=== PATIENT | female | born 1955 | race Caucasian/White ===

== ENCOUNTER → 2016-07-04 | Outpatient (CLI) | payer OTHER ==
[~2016-07-04] MED LIST: CALC1CHW71 PO; FOLI1TAB8 PO; MELO15TA4 PO; METH2.5T PO; MULT-506 PO; RMCI IV; TRAM-10 PO; ZOLP10TA PO
--- NOTE | 2016-07-04 11:10 | DIAGNOSTIC IMAGING REPORT ---
LEFT HAND MIN 3 VIEWS ROUTINE CLINICAL HISTORY: M06.9 Rheumatoid [id number] Long-term use of immunosuppres COMPARISON STUDY: None. FINDINGS: Severe cartilage space narrowing throughout the carpal bones with remodeling of the distal radius due to the [id number] articulation. The ulnar styloid is absent possibly due to erosion. There is mild soft tissue swelling at the wrist. The bones are diffusely osteopenic. No acute fractures identified. Ulnar angulation at the second through fifth MCP joints. There is associated superimposed osteoarthritis at the MCP joints. Mild osteoarthritis at the DIP and PIP joints of the left hand. Suspect small erosions at the ulnar styloid, lateral aspect of the hamate bone, and at the heads of the metacarpals. There is also severe osteoarthritis at the first carpometacarpal joint. IMPRESSION: 1. Marked ulnar angulation at the second through fifth MCP joints. There is superimposed osteoarthritis at the MCP joints. There may be small erosions at the head of the second through fifth metacarpals. There is also suggestion of soft tissue swelling and small erosions at the ulnar styloid and at the lateral aspect of the hamate bone. This would be consistent with the patient's history of rheumatoid arthritis. 2. 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 Electronically signed by: Dago Singh M.D. 07/04/2016 11:08 AM
--- NOTE | 2016-07-04 11:18 | DIAGNOSTIC IMAGING REPORT ---
RIGHT HAND MIN 3 VIEWS ROUTINE CLINICAL HISTORY: Rheumatoid arthritis. COMPARISON: None FINDINGS: Marked joint space narrowing is noted within the right wrist as well as multiple articulations of the right hand. There is subluxation with ulnar angulation of the second, third, fourth and fifth metacarpophalangeal joints. This is chronic. Several periarticular lucencies likely reflect erosions. No acute fracture is identified. No suspicious osseous lesion is identified. IMPRESSION: 1. Subluxation with ulnar angulation of the second through fifth metacarpophalangeal joints. The findings suggest rheumatoid arthritis. 2. Marked joint space narrowing within the right wrist which may also reflect rheumatoid arthritis. 3. Scattered suspected erosions. Electronically signed by: Arun Moreno M.D. 07/04/2016 11:16 AM
[2016-07-04 12:09] LABS: BASO % 0.6 %; BASO ABS # 0.03 K/uL (0-0.2); COMPLETE YES; EOS % 4.5 %; HEMATOCRIT 35.9 % (37-47); IG% 0.2 %; LYMPH ABS # 1.17 K/uL (1.2-3.4); MEAN CELL VOLUME 101.7 fL (80-100); MEAN CORPUSCULAR HEMOGLOBIN 35.1 pg (25-34); MEAN CORPUSCULAR HGB CONC 34.5 g/dl (32-36); MEAN PLATELET VOLUME 10.5 fL (7.4-10.4); MONO % 9.4 %; NEUT % 61.3 %; PLATELET COUNT 196 K/uL (130-400); RED BLOOD COUNT 3.53 M/uL (4.2-5.4); WHITE BLOOD COUNT 4.87 K/uL (4.8-10.8)
[2016-07-04 12:14] LABS: AST/SGOT 15 U/L (15-37); CREATININE 0.93 mg/dl (0.60-1.20)
[2016-07-04 12:17] LABS: ALKALINE PHOSPHATASE 80 U/L (45-117); ALT/SGPT 21 U/L (12-78); RHEUMATOID FACTOR < 10.0 U/mL (0-15)
== END | disposition home or self-care (01) ==
LOC: C.RAD1850 10:49
PROVIDERS: ATTEND Internal Medicine Rheumatology
DX: M06.9 Rheumatoid arthritis, unspecified (principal); Z79.1 Long term (current) use of non-steroidal anti-inflammatories (NSAID); Z79.899 Other long term (current) drug therapy; M19.032 Primary osteoarthritis, left wrist

== ENCOUNTER → 2016-09-05 | Outpatient (CLI) | payer OTHER ==
[~2016-09-05] MED LIST changes: +FOLI1TAB7 PO; -FOLI1TAB8 PO
[2016-09-05 11:54] LABS: BASO % 0.6 %; BASO ABS # 0.03 K/uL (0-0.2); COMPLETE YES; EOS % 2.8 %; HEMATOCRIT 36.9 % (37-47); IG% 0.2 %; LYMPH % 28.9 %; LYMPH ABS # 1.43 K/uL (1.2-3.4); MEAN CELL VOLUME 100.3 fL (80-100); MEAN CORPUSCULAR HEMOGLOBIN 35.1 pg (25-34); MEAN PLATELET VOLUME 10.6 fL (7.4-10.4); MONO % 8.5 %; PLATELET COUNT 226 K/uL (130-400); RED BLOOD COUNT 3.68 M/uL (4.2-5.4); WHITE BLOOD COUNT 4.94 K/uL (4.8-10.8)
[2016-09-05 12:04] LABS: CREATININE 0.86 mg/dl (0.60-1.20)
[2016-09-05 12:09] LABS: ALKALINE PHOSPHATASE 73 U/L (45-117); ALT/SGPT 18 U/L (12-78); AST/SGOT 17 U/L (15-37)
== END | disposition home or self-care (01) ==
LOC: C.LAB1850 10:04
PROVIDERS: ATTEND Internal Medicine Rheumatology
DX: M06.9 Rheumatoid arthritis, unspecified (principal); Z51.81 Encounter for therapeutic drug level monitoring; Z79.1 Long term (current) use of non-steroidal anti-inflammatories (NSAID); Z79.899 Other long term (current) drug therapy

== ENCOUNTER → 2016-10-23 | Outpatient (CLI) | payer OTHER ==
--- NOTE | 2016-10-24 15:07 | MAMMOGRAPHY REPORT ---
BILATERAL DIGITAL SCREENING MAMMOGRAM WITH CAD: 10/23/2016 CLINICAL HISTORY: Routine screening. Patient has no complaints. TECHNIQUE: Bilateral CC and MLO views were obtained. Current study was also evaluated with a Comput er Aided Detection (CAD) system. COMPARISON: Comparison is made to exams dated: 10/10/2015 mammogram, 08/24/2014 mammogram, 08/18/2013 mammogram, 07/21/2012 mammogram, 07/17/2011 mammogram, and 07/24/2010 mammogram - [facility]. BREAST COMPOSITION: There are scattered areas of fibroglandular density in both breasts. FINDINGS: There is stable asymmetry in the superior, posterior right breast on the MLO view. No collin picious mass, architectural distortion or cluster of new, suspicious microcalcifications is seen. IMPRESSION: ACR BI-RADS CATEGORY 1: NEGATIVE There is no mammographic evidence of malignancy. A 1 year screening mammogram is recommended. The p atient will receive written notification of the results. Approximately 10% of breast cancers are not detected with mammography. A negative mammographic repor t should not delay biopsy if a clinically suggestive mass is present. Livier Jimenez M.D. ay/:10/23/2016 22:05:11 Continuous Drier Helper: Melvi ESPINOZA(Namita)([place]), [facility] letter sent: Normal 1/2 BI-RADS Code: ACR BI-RADS Category 1: Negative
== END | disposition home or self-care (01) ==
LOC: C.MAMM 17:00
PROVIDERS: ATTEND Internal Medicine
DX: Z12.31 Encounter for screening mammogram for malignant neoplasm of breast (principal)

== ENCOUNTER → 2016-11-08 | Outpatient (CLI) | payer OTHER ==
[2016-11-08 16:57] LABS: BASO % 0.6 %; BASO ABS # 0.03 K/uL (0-0.2); COMPLETE YES; EOS % 3.2 %; HEMATOCRIT 37.9 % (37-47); IG% 0.2 %; LYMPH % 26.8 %; LYMPH ABS # 1.42 K/uL (1.2-3.4); MEAN CELL VOLUME 102.4 fL (80-100); MEAN CORPUSCULAR HEMOGLOBIN 35.1 pg (25-34); MEAN CORPUSCULAR HGB CONC 34.3 g/dl (32-36); MEAN PLATELET VOLUME 10.4 fL (7.4-10.4); NEUT % 59.2 %; PLATELET COUNT 217 K/uL (130-400)
[2016-11-08 19:20] LABS: ALT/SGPT 22 U/L (12-78); AST/SGOT 18 U/L (15-37); CREATININE 0.89 mg/dl (0.60-1.20)
[2016-11-08 19:22] LABS: ALKALINE PHOSPHATASE 92 U/L (45-117)
== END | disposition home or self-care (01) ==
LOC: C.LABBC 14:22
PROVIDERS: ATTEND Internal Medicine Rheumatology
DX: M06.9 Rheumatoid arthritis, unspecified (principal); Z79.899 Other long term (current) drug therapy; Z79.1 Long term (current) use of non-steroidal anti-inflammatories (NSAID)

== ENCOUNTER → 2017-01-09 | Outpatient (CLI) | payer OTHER | END | disposition home or self-care (01) | LOC: C.PAPS 14:39 | PROVIDERS: ATTEND Obstetrics & Gynecology | DX: Z12.4 Encounter for screening for malignant neoplasm of cervix (principal) ==

== ENCOUNTER → 2017-01-15 | Outpatient (CLI) | payer OTHER | END | disposition home or self-care (01) | LOC: C.PATHSPEC 16:48 | PROVIDERS: ATTEND Dermatology | DX: B08.1 Molluscum contagiosum (principal) ==

== ENCOUNTER → 2017-01-23 | Outpatient (CLI) | payer OTHER ==
[2017-01-23 10:37] LABS: BASO % 1.2 %; BASO ABS # 0.05 K/uL (0-0.2); COMPLETE YES; EOS % 6.7 %; HEMATOCRIT 36.3 % (37-47); IG% 0.2 %; LYMPH % 33.9 %; LYMPH ABS # 1.36 K/uL (1.2-3.4); MEAN CELL VOLUME 102.3 fL (80-100); MEAN CORPUSCULAR HEMOGLOBIN 34.4 pg (25-34); MEAN CORPUSCULAR HGB CONC 33.6 g/dl (32-36); MONO % 12.7 %; NEUT % 45.3 %; PLATELET COUNT 200 K/uL (130-400); RED BLOOD COUNT 3.55 M/uL (4.2-5.4); WHITE BLOOD COUNT 4.01 K/uL (4.8-10.8)
[2017-01-23 11:56] LABS: ALKALINE PHOSPHATASE 76 U/L (45-117); ALT/SGPT 18 U/L (12-78); AST/SGOT 16 U/L (15-37); BLOOD UREA NITROGEN 21 mg/dl (7-18); CALCIUM 8.6 mg/dl (8.5-10.1); CARBON DIOXIDE 26 mmol/L (21-32); CHLORIDE 111 mmol/L (98-107); CHOLESTEROL 165 mg/dl (0-200); CHOLESTEROL/HDL RATIO 2.1; CREATININE 0.88 mg/dl (0.60-1.20); GLUCOSE 85 mg/dl (70-99); HDL CHOLESTEROL 79 mg/dl; POTASSIUM 4.3 mmol/L (3.5-5.1); SODIUM 142 mmol/L (136-145)
[2017-01-23 12:07] LABS: LDL CHOLESTEROL CALCULATED 76 mg/dl; TRIGLYCERIDES 50 mg/dl (0-150); VERY LOW DENSITY LIPOPROT CALC 10 mg/dl
== END | disposition home or self-care (01) ==
LOC: C.LABBC 07:47
PROVIDERS: ATTEND Internal Medicine Rheumatology
DX: Z11.59 Encounter for screening for other viral diseases (principal); G47.00 Insomnia, unspecified; M06.9 Rheumatoid arthritis, unspecified; Z79.1 Long term (current) use of non-steroidal anti-inflammatories (NSAID); Z79.899 Other long term (current) drug therapy

== ENCOUNTER → 2017-02-20 | Outpatient (CLI) | payer OTHER | END | disposition home or self-care (01) | LOC: C.PATHSPEC 16:20 | PROVIDERS: ATTEND Dermatology | DX: B08.1 Molluscum contagiosum (principal) ==

== ENCOUNTER → 2017-04-15 | Outpatient (CLI) | payer OTHER ==
[2017-04-15 16:34] LABS: BASO % 1.5 %; BASO ABS # 0.07 K/uL (0-0.2); COMPLETE YES; EOS % 6.2 %; HEMATOCRIT 37.4 % (37-47); IG% 0.2 %; LYMPH % 41.7 %; LYMPH ABS # 1.89 K/uL (1.2-3.4); MEAN CELL VOLUME 102.5 fL (80-100); MEAN CORPUSCULAR HEMOGLOBIN 35.1 pg (25-34); MEAN CORPUSCULAR HGB CONC 34.2 g/dl (32-36); MEAN PLATELET VOLUME 10.2 fL (7.4-10.4); MONO % 11.7 %; NEUT % 38.7 %; PLATELET COUNT 215 K/uL (130-400); RED BLOOD COUNT 3.65 M/uL (4.2-5.4); WHITE BLOOD COUNT 4.53 K/uL (4.8-10.8)
[2017-04-15 16:52] LABS: ALT/SGPT 19 U/L (12-78); AST/SGOT 15 U/L (15-37); CREATININE 0.92 mg/dl (0.60-1.20)
== END ==
LOC: C.LAB1850 14:56
PROVIDERS: ATTEND Internal Medicine Rheumatology
DX: Z79.1 Long term (current) use of non-steroidal anti-inflammatories (NSAID) (principal); Z79.899 Other long term (current) drug therapy; M06.9 Rheumatoid arthritis, unspecified

== ENCOUNTER → 2017-04-23 | Outpatient (CLI) | payer OTHER ==
--- NOTE | 2017-04-23 14:13 | DIAGNOSTIC IMAGING REPORT ---
RIGHT KNEE 2 VIEWS HISTORY: M25.561 Right knee pain [id number] COMPARISON: 04/03/2011 FINDINGS: No acute fracture dislocation. Severe osteoarthritis at the patellofemoral joint with [id number] articulation, subchondral sclerosis, and marginal osteophytes. The bones are osteopenic. There are 2 orthopedic screws through the patella. The hardware appears intact. Small knee effusion. 1 of the screw tips extends beyond the cortex of the patella superiorly by approximately 1 cm. This has slightly progressed improves it measured 6 mm. Chondrocalcinosis. Mild to moderate osteoarthritis at the medial lateral compartments of the knee. Progressive sclerosis at the medial and lateral femoral condyles. IMPRESSION: 1. No acute fracture or dislocation within the right knee. 2. There are again noted 2 orthopedic screws within the patella. One of the screw tips extend beyond the cortex of the patella superiorly by approximately 1 cm. This is slightly progressed. 3. Severe osteoarthritis at the patellofemoral joint. 4. Contrast stenosis. 5. Progressive sclerosis at the medial and lateral femoral condyles. This could be due to long-standing degenerative change. However, avascular necrosis could also have a similar appearance but is considered less likely. Electronically signed by: Dago Singh M.D. 04/23/2017 2:12 PM Dictated Date/Time: 04/23/2017 2:06 PM
== END | disposition home or self-care (01) ==
LOC: C.RAD1850 13:50
PROVIDERS: ATTEND Internal Medicine Rheumatology
DX: M17.11 Unilateral primary osteoarthritis, right knee (principal); M89.8X6 Other specified disorders of bone, lower leg; Z98.890 Other specified postprocedural states

== ENCOUNTER → 2017-06-05 | Outpatient (CLI) | payer OTHER ==
[2017-06-05 10:42] LABS: BASO % 0.4 %; BASO ABS # 0.03 K/uL (0-0.2); COMPLETE YES; EOS % 1.9 %; HEMATOCRIT 38.2 % (37-47); IG% 0.2 %; LYMPH % 32.3 %; LYMPH ABS # 2.66 K/uL (1.2-3.4); MEAN CELL VOLUME 104.9 fL (80-100); MEAN CORPUSCULAR HEMOGLOBIN 35.4 pg (25-34); MEAN CORPUSCULAR HGB CONC 33.8 g/dl (32-36); MEAN PLATELET VOLUME 10.2 fL (7.4-10.4); MONO % 10.6 %; NEUT % 54.6 %; PLATELET COUNT 300 K/uL (130-400); RED BLOOD COUNT 3.64 M/uL (4.2-5.4); WHITE BLOOD COUNT 8.24 K/uL (4.8-10.8)
[2017-06-05 11:02] LABS: ALT/SGPT 19 U/L (12-78); AST/SGOT 16 U/L (15-37); CREATININE 0.87 mg/dl (0.60-1.20)
[2017-06-05 11:05] LABS: ALKALINE PHOSPHATASE 85 U/L (45-117)
== END | disposition home or self-care (01) ==
LOC: C.LABBC 07:45
PROVIDERS: ATTEND Internal Medicine Rheumatology
DX: M25.561 Pain in right knee (principal)

== ENCOUNTER → 2017-07-28 | Outpatient (CLI) | payer OTHER ==
[~2017-07-28] MED LIST changes: -FOLI1TAB7 PO; +FOLI1TAB8 PO
--- NOTE | 2017-07-28 16:13 | DIAGNOSTIC IMAGING REPORT ---
RIGHT HAND 3 VIEWS HISTORY: I73.00 Raynaud's disease New onset Raynaud's positive history of COMPARISON: Right hand 07/04/2016. FINDINGS: Marked joint space narrowing is noted within the right wrist as well as multiple articulations of the right hand. There is subluxation with ulnar angulation of the second, third, fourth and fifth metacarpophalangeal joints. This is chronic. Several periarticular lucencies likely reflect erosions. No acute fracture is identified. No suspicious osseous lesion is identified. The bones are osteopenic. IMPRESSION: 1. Overall, no significant change compared to the prior study. 2. Subluxation with ulnar angulation of the second through fifth metacarpophalangeal joints. The findings suggest rheumatoid arthritis. 3. Marked joint space narrowing within the right wrist which may also reflect rheumatoid arthritis. 4. Scattered suspected erosions. Electronically signed by: Dago Singh M.D. 07/28/2017 4:12 PM Dictated Date/Time: 07/28/2017 4:10 PM
--- NOTE | 2017-07-28 16:15 | DIAGNOSTIC IMAGING REPORT ---
LEFT HAND 3 VIEWS HISTORY: I73.00 Raynaud's disease New onset Raynaud's positive history of COMPARISON: Left hand 07/04/2016. FINDINGS: Severe cartilage space narrowing throughout the carpal bones with remodeling of the distal radius due to the [id number] articulation. The ulnar styloid is absent possibly due to erosion. There is mild soft tissue swelling at the wrist. The bones are diffusely osteopenic. No acute fractures identified. Ulnar angulation at the second through fifth MCP joints. There is associated superimposed osteoarthritis at the MCP joints. Mild osteoarthritis at the DIP and PIP joints of the left hand. Suspect small erosions at the ulnar styloid, lateral aspect of the hamate bone, and at the heads of the metacarpals. There is also severe osteoarthritis at the first carpometacarpal joint. IMPRESSION: 1. Overall, no significant change compared to the prior study. 2. Marked ulnar angulation at the second through fifth MCP joints. There is superimposed osteoarthritis at the MCP joints. There may be small erosions at the head of the second through fifth metacarpals. There is also suggestion of soft tissue swelling and small erosions at the ulnar styloid and at the lateral aspect of the hamate bone. This would be consistent with the patient's history of rheumatoid arthritis. 3. 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 Electronically signed by: Dago Singh M.D. 07/28/2017 4:14 PM Dictated Date/Time: 07/28/2017 4:12 PM
== END | disposition home or self-care (01) ==
LOC: C.RAD1850 15:52
PROVIDERS: ATTEND Internal Medicine Rheumatology
DX: I73.00 Raynaud's syndrome without gangrene (principal); M19.032 Primary osteoarthritis, left wrist

== ENCOUNTER → 2017-07-30 | Outpatient (CLI) | payer OTHER ==
[2017-08-04 05:20] LABS: ANA SCREEN TC 249X POSITIVE (NEGATIVE); ANTI-SS-A 8.0 POS AI (<1.0 NEG); ANTI-SS-B <1.0 NEG AI (<1.0 NEG); ANTICARDIOLIPID AB IGA <11 APL (< = 11); COMPLEMENT C3 TC 44859W 87 MG/DL (90-180); COMPLEMENT C4 TC 44982E 13 MG/DL (16-47); MICROSOMAL AB 4 IU/ML (<9)
== END | disposition home or self-care (01) ==
LOC: C.LAB1850 07:57
PROVIDERS: ATTEND Internal Medicine Rheumatology
DX: I73.00 Raynaud's syndrome without gangrene (principal)

== ENCOUNTER → 2017-08-21 | Outpatient (CLI) | payer OTHER ==
[~2017-08-21] MED LIST changes: +MELO-84 PO; -MELO15TA4 PO
[2017-08-21 16:58] LABS: BASO % 0.5 %; BASO ABS # 0.03 K/uL (0-0.2); EOS % 3.8 %; EOS ABS # 0.21 K/uL (0-0.5); HEMATOCRIT 36.6 % (37-47); HEMOGLOBIN 12.5 g/dL (12.0-16.0); IG# 0.01 K/uL (0.00-0.02); LYMPH % 31.1 %; LYMPH ABS # 1.74 K/uL (1.2-3.4); MEAN CELL VOLUME 102.5 fL (80-100); MEAN CORPUSCULAR HGB CONC 34.2 g/dl (32-36); MEAN PLATELET VOLUME 10.6 fL (7.4-10.4); MONO % 9.5 %; MONO ABS # 0.53 K/uL (0.11-0.59); NEUT % 54.9 %; NEUT ABS # 3.07 K/uL (1.4-6.5); PLATELET COUNT 209 K/uL (130-400); RED CELL DISTRIBUTION WIDTH SD 51.6 fL (36.4-46.3); WHITE BLOOD COUNT 5.59 K/uL (4.8-10.8)
[2017-08-21 17:08] LABS: ALBUMIN 3.2 gm/dl (3.4-5.0); ALT/SGPT 18 U/L (12-78); CREATININE 1.01 mg/dl (0.60-1.20)
[2017-08-21 17:11] LABS: ALKALINE PHOSPHATASE 95 U/L (45-117); AST/SGOT 19 U/L (15-37)
== END | disposition home or self-care (01) ==
LOC: C.LABBC 15:19
PROVIDERS: ATTEND Internal Medicine Rheumatology
DX: M06.9 Rheumatoid arthritis, unspecified (principal); M81.0 Age-related osteoporosis without current pathological fracture

== ENCOUNTER → 2017-11-18 | Outpatient (CLI) | payer OTHER ==
--- NOTE | 2017-11-19 14:22 | MAMMOGRAPHY REPORT ---
BILATERAL DIGITAL SCREENING MAMMOGRAM TOMOSYNTHESIS WITH CAD: 11/18/2017 CLINICAL HISTORY: Routine screening. Patient has no complaints. TECHNIQUE: Breast tomosynthesis in addition to standard 2D mammography was performed. Current study was also evaluated with a Computer Aided Detection (CAD) system. COMPARISON: Comparison is made to exams dated: 10/23/2016 mammogram, 10/10/2015 mammogram, 08/24/2014 m ammogram, 08/18/2013 mammogram, 07/21/2012 mammogram, and 07/17/2011 mammogram - [facility]. BREAST COMPOSITION: There are scattered areas of fibroglandular density in both breasts. FINDINGS: The parenchymal pattern is unchanged. No developing mass, architectural distortion or clus ter of suspicious microcalcifications is seen in either breast. IMPRESSION: ACR BI-RADS CATEGORY 2: BENIGN There is no mammographic evidence of malignancy. A 1 year screening mammogram is recommended. The pa tient will receive written notification of the results. Approximately 10% of breast cancers are not detected with mammography. A negative mammographic report should not delay biopsy if a clinically suggestive mass is present. Livier Jimenez M.D. ay/:11/18/2017 19:07:05 Admissions Consultant: Dyana ESPINOZA(Namita)([place]), [facility] letter sent: Normal 1/2 BI-RADS Code: ACR BI-RADS Category 2: Benign
== END ==
LOC: C.MAMM 08:55
PROVIDERS: ATTEND Internal Medicine
DX: M81.0 Age-related osteoporosis without current pathological fracture (principal); M85.88 Other specified disorders of bone density and structure, other site; Z12.31 Encounter for screening mammogram for malignant neoplasm of breast

== ENCOUNTER → 2018-01-26 | Outpatient (CLI) | payer OTHER ==
[2018-01-26 11:16] LABS: BASO ABS # 0.05 K/uL (0-0.2); EOS % 4.6 %; EOS ABS # 0.23 K/uL (0-0.5); HEMATOCRIT 36.4 % (37-47); HEMOGLOBIN 12.5 g/dL (12.0-16.0); IG# 0.01 K/uL (0.00-0.02); LYMPH % 34.5 %; LYMPH ABS # 1.73 K/uL (1.2-3.4); MEAN CELL VOLUME 102.2 fL (80-100); MEAN CORPUSCULAR HEMOGLOBIN 35.1 pg (25-34); MEAN CORPUSCULAR HGB CONC 34.3 g/dl (32-36); MEAN PLATELET VOLUME 11.1 fL (7.4-10.4); MONO % 6.8 %; MONO ABS # 0.34 K/uL (0.11-0.59); NEUT % 52.9 %; NEUT ABS # 2.66 K/uL (1.4-6.5); PLATELET COUNT 233 K/uL (130-400); RED CELL DISTRIBUTION WIDTH CV 14.4 % (11.5-14.5); RED CELL DISTRIBUTION WIDTH SD 52.9 fL (36.4-46.3); WHITE BLOOD COUNT 5.02 K/uL (4.8-10.8)
[2018-01-26 11:34] LABS: ALBUMIN 3.2 gm/dl (3.4-5.0); ALKALINE PHOSPHATASE 83 U/L (45-117); ALT/SGPT 24 U/L (12-78); AST/SGOT 25 U/L (15-37); CREATININE 0.97 mg/dl (0.60-1.20); TOTAL PROTEIN 7.1 gm/dl (6.4-8.2)
== END | disposition home or self-care (01) ==
LOC: C.LABBC 08:49
PROVIDERS: ATTEND Internal Medicine Rheumatology
DX: M06.9 Rheumatoid arthritis, unspecified (principal); M81.0 Age-related osteoporosis without current pathological fracture; E61.8 Deficiency of other specified nutrient elements; Z79.899 Other long term (current) drug therapy